=== PATIENT | female | born 1970 | race Caucasian/White ===

== ENCOUNTER 2018-08-31 12:14 | Emergency (ER) | payer OTHER ==
[~2018-08-31] VITALS: Ht 170.2 cm; Wt 91.3 kg
[2018-08-31 12:55] LABS: BASOPHILS # (AUTO) 0.04 x10^3/uL (0-0.1); BASOPHILS % (AUTO) 1 % (0-1); EOSINOPHILS # (AUTO) 0.23 x10^3/uL (0-0.4); EOSINOPHILS % (AUTO) 3 % (1-7); LYMPHOCYTES # (AUTO) 2.18 x10^3/uL (1-3.4); LYMPHOCYTES % (AUTO) 27 % (22-44); MD NO; MEAN CORPUSCULAR HGB CONC 32.8 g/dL (32.4-35.8); MEAN CORPUSCULAR VOLUME 91.5 fL (80-100); MEAN PLATELET VOLUME 7.8 fL (7.4-10.4); MONOCYTES # (AUTO) 0.56 x10^3/uL (0.2-0.8); MONOCYTES % (AUTO) 7 % (2-9); NEUTROPHILS % (AUTO) 63 % (42-75); PLATELET COUNT 294 x10^3/uL (130-400); RED BLOOD COUNT 5.16 x10^6/uL (3.82-5.3); RED CELL DISTRIBUTION WIDTH 12.4 % (9.6-15.2)
[2018-08-31 13:03] LABS: ALBUMIN 4.1 g/dL (3.4-5.0); ANION GAP 6 mmol/L (5-15); CALCIUM 8.7 mg/dL (8.5-10.1); CHLORIDE 108 mmol/L (98-107)
[2018-08-31 13:09] LABS: CREATININE 0.92 mg/dL (0.55-1.02); TROPONIN I < 0.015 ng/mL (0.000-0.045)
--- NOTE | 2018-08-31 13:26 | NUR ---
ASSUMED CARE OF PT FROM LOBBY AT THIS TIME.
--- NOTE | 2018-08-31 13:39 | NUR ---
PT C/O INTERMITTENT CHEST PRESSURE FOR ONE MONTH WITH LIGHTHEADEDNESS 1.5 WEEKS AGO. PT REPORTED ANXIETY IN THE MIDDLE OF THE NOC WHEN CP STARTED ONE MONTH AGO. DR. CORTEZ AT BEDSIDE. WAITING FOR FURTHER ORDERS. ALL PIT ORDERS ARE COMPLETED AND NEGATIVE.
[2018-08-31 14:02] VITALS: BP 145/102
== END 2018-08-31 14:39 | disposition home or self-care (01) ==
LOC: ED 14:26
DX: R07.89 Other chest pain (principal); I10 Essential (primary) hypertension
CPT/HCPCS: 36415; 71045; 80048; 82040; 84484; 85025; 93005; 99284